=== PATIENT | male | born 1950 | race Caucasian/White ===

== ENCOUNTER 2017-09-04 11:32 | Inpatient (IN) | payer MEDICARE, SELFPAY ==
[~2017-09-04 11:32] MED LIST: Lidocaine 1% (PF) 30 ML VIAL ONE
[2017-09-04] MEDS ORDERED: Ondansetron HCl/PF 4 MG/2 ML Vial ONE (11:44)
[2017-09-04 12:06] LABS: Hemoglobin 16.9 g/dL (14.0-18.0); Mean Corpuscular HGB CONC 34.6 g/dL (32.0-36.0); Mean Corpuscular Hemoglobin 32.1 pg (27.0-31.0); Mean Corpuscular Volume 92.8 fl (80.0-94.0); Mean Platelet Volume 7.2 fL (7.4-10.4); Platelet Count 221 thou/uL (130-400); RBC Distribution Width 12.8 % (11.5-14.5); Red Blood Cell (RBC) Count 5.25 mill/uL (4.70-6.10); White Blood Cell (WBC) Count 16.3 thou/uL (4.8-10.8)
[2017-09-04] MEDS ORDERED: Heparin 10,000 UNITS/1 ML VIAL ONE (12:09)
[2017-09-04] MEDS ORDERED: Aggrastat 12.5 MG/250 ML 250 ML ONE (12:10)
[2017-09-04 12:11] LABS: INR-International Normal Ratio 1.2; Prothrombin Time 15.3 SEC (12.0-14.7)
[2017-09-04 12:12] LABS: PTT 87.4 SEC (22.9-36.1)
[2017-09-04 12:17] LABS: ALT (SGPT) 248 U/L (8-55); AST (SGOT) 204 U/L (5-34); Albumin 3.5 g/dL (3.4-4.8); Alkaline Phosphatase 84 U/L (40-150); Anion Gap 15 mmol/L (10-20); BUN (Urea Nitrogen) 15 mg/dL (8.4-25.7); Bilirubin, Total 0.8 mg/dL (0.2-1.2); CK (CPK) 155 U/L (30-200); Calc. Creatinine Clearance 0 mL/min (70-130); Calcium 8.2 mg/dL (7.8-10.44); Carbon Dioxide 17 mmol/L (23-31); Chloride 103 mmol/L (98-107); Estimated GFR-MDRD 49; Globulin 2.7 g/dL (2.4-3.5); Glucose 168 mg/dL (80-115); Lipase 170 U/L (8-78); Magnesium 1.8 mg/dL (1.6-2.6); Potassium 3.7 mmol/L (3.5-5.1); Protein, Total 6.2 g/dL (5.8-8.1); Sodium 131 mmol/L (136-145)
[2017-09-04 12:26] LABS: Band 4 % (5-11); Lymphocytes 14 % (21-51); MDiff Complete? YES; Monocytes 6 % (0-10); Neutrophil 76 % (42-75); PLT Morphology Comment Appears Adequate
[2017-09-04] MEDS ORDERED: Iopamidol 370 76% 100 ML VIAL ONE (12:31)
[2017-09-04] MEDS ORDERED: Iopamidol 370 76% 50 ML VIAL FS ONE (12:31)
[2017-09-04] MEDS ORDERED: Nitroglycerin 0.4 MG TAB (25 Tab Bottle) SL PRN (12:34)
[2017-09-04] MEDS ORDERED: Ondansetron HCl/PF 4 MG/2 ML Vial IVP PRN (12:36)
[2017-09-04] MEDS ORDERED: Senokot 8.6 MG TAB PO PRN (12:39)
[2017-09-04] MEDS ORDERED: Milk Of Magnesia 30 ML UDCUP PO PRN (12:39)
[2017-09-04] MEDS ORDERED: Loperamide HCl 2 MG CAP PO PRN (12:39)
[2017-09-04] MEDS ORDERED: Aggrastat 12.5 MG/250 ML 250 ML IVPB SCH (12:45)
[2017-09-04] MEDS ORDERED: Sodium Chloride 0.9% 1,000 ML IV SCH (12:45)
[2017-09-04 13:04] VITALS: BMI 30.3
[2017-09-04] MEDS ORDERED: Amiodarone HCl 450 MG, Admixture Fee 1 EACH in Dextrose 5% in Water 250 ML IVPB SCH (13:15)
[2017-09-04] MEDS ORDERED: Amiodarone HCl 150 MG, Admixture Fee 1 EACH in Dextrose 5% in Water 100 ML IVPB SCH (13:15)
[2017-09-04 13:54] LABS: Troponin I 21.905 ng/mL (< 0.028)
[2017-09-04 14:15] LABS: CKMB 226.6 ng/mL (0-6.6)
--- NOTE | 2017-09-04 15:28 | RAD ---
PORTABLE AP CHEST XRAY: DATE: 09/04/17. HISTORY: Acute myocardial infarction. COMPARISON: 05/10/10. FINDINGS: Postsurgical changes related to median sternotomy are again present. Thoracostomy tubes, mediastinal drain, and right subclavian central venous catheters are no longer visualized. Linear densities are seen in the right upper lung zone probably related to mild scarring. The lungs otherwise appear jamal ar. The most inferior aspect of each lateral costophrenic angle is excluded from view. There is mil d prominence of the central pulmonary arterial segments unchanged from prior exam. No other interval change. IMPRESSION: Mild chronic lung changes without evidence of an acute cardiopulmonary process. POS: [facility]
[2017-09-04] MEDS: Acetaminophen 325 MG TAB PO PRN (15:58)
[2017-09-04 19:17] LABS: Bilirubin Negative (Negative); Blood, Urine Moderate (Negative); Clarity CLEAR (Clear); Glucose, Urine (Dipstick) Negative (Negative); Leukocyte Negative (Negative); Nitrite Negative (Negative); Protein, Urine (Dipstick) Negative (Neg-Trace); Specific Gravity, Urine 1.043 (1.002-1.036); Urobilinogen 0.2 mg/dL (0.2-1.0); pH, Urine 5.5 (5.0-9.0)
[2017-09-04 19:18] LABS: Bacteria/HPF None Seen HPF (None Seen); Hyaline Casts/LPF 0-3 HYALINE CAST LPF (0-3 Hyaline); RBC/HPF 0-3 HPF (0-3); Squamous Epithelial None Seen HPF (0-3); WBC/HPF 0-3 HPF (0-3)
[2017-09-04 20:33] LABS: Troponin I 163.681 ng/mL (< 0.028)
[2017-09-04 20:34] LABS: CKMB 640.8 ng/mL (0-6.6)
[2017-09-04] MEDS: Atorvastatin Calcium 40 MG TAB PO SCH (20:57)
[2017-09-04] MEDS: Famotidine 20 MG TAB PO SCH (20:57)
[2017-09-04] MEDS: TICAGRELOR 90 MG TABLET PO SCH (20:58)
[2017-09-04] MEDS: Morphine 4 MG/ML VIAL SLOW IVP PRN (21:02)
--- NOTE | 2017-09-05 03:09 | HP ---
DATE OF ADMISSION: 09/04/2017 CHIEF COMPLAINT: Chest pain. HISTORY OF PRESENT ILLNESS: Mr. Amos is a pleasant 67-year-old white gentleman who comes to the [facility] for chest pain. He has been having chest pain for about an hour and a half before calling EMS. When EMS arrived, he had already lost consciousness. His was a nurse put him on the floor and was doing chest compressions on him. On the EMS arrival, he was found to be in ventricular fibrilla tion. He was given one shock and he woke up. Eventually, he went back into VFib twice on the way in to the hospital, so he was loaded on amiodarone and brought in by EMS. EKG on route was done and it showed inferolateral ST elevations, so the STEMI pager was activated. We are waiting for the patient in the ER, he was taken emergently to the catheterization lab, but he was found to have an occluded left circumflex proximally, this was successfully wired and stented with a drug-eluting stent. He di d much better. His symptoms got better after that. His ST changes also improved. He has a history of coronary artery disease with bypass in 2010. He had a CRUZ to the LAD, a vein to an OM, and a vei n to an RCA, all these grafts were occluded and not found. The CRUZ was atretic. There is residual significant RCA disease as well as significant LAD disease. Mr. Amos was transferred then to the [facility] for further monitoring. Currently, he is chest pain free. PAST MEDICAL HISTORY: 1. Coronary artery disease as above. 2. Hypertension. 3. Tobacco abuse. 4. Gout. 5. Hyperlipidemia. PAST SURGICAL HISTORY: Coronary artery bypass grafting x3 as above. OUTPATIENT MEDICATIONS: Include, 1. Pravastatin 20 mg at bedtime. 2. Losartan 100 mg a day. 3. Aspirin 325 a day. 4. Allopurinol 100 mg a day. FAMILY HISTORY: Noncontributory. SOCIAL HISTORY: He continues to smoke a pack a day. No alcohol or drugs. ALLERGIES: No known drug allergies. REVIEW OF SYSTEMS: A 12-point review of systems was done and is all negative unless stated in the hi story of present illness. PHYSICAL EXAMINATION: VITAL SIGNS: Temperature 97.5, pulse 81, respiratory rate 20, satting 100% on room air, and blood pr essure 95/69. GENERAL: Awake, alert, oriented x3, in no distress. HEENT: Normocephalic, atraumatic. NECK: Supple. LUNGS: Lungs are clear. CARDIOVASCULAR: S1, S2, no S3, S4. There is a grade 2/6 systolic murmur in the right upper sternal border. ABDOMEN: Soft, positive bowel sounds. EXTREMITIES: No edema. SKIN: Warm and dry. LABORATORY WORK: Reviewed. White count of 16, hemoglobin of 16, hematocrit of 48, platelet count of 221. Coags were reviewed. Chemistries were reviewed. Sodium of 131, creatinine of 1.45, GFR of 49 , glucose of 168, AST and ALT are little bit high. Troponin started at 0.09 up to 21.9 now 163. BNP was 31.2. UA was unremarkable except for moderate blood. Chest x-ray was reviewed. EKG is as above. ASSESSMENT: 1. Acute inferolateral ST elevation myocardial infarction. 2. Tobacco abuse. 3. Hypertension. 4. Ventricular fibrillation arrest. PLAN: 1. Dual antiplatelet therapy for minimum of one year with aspirin and Brilinta, aspirin 81. 2. Continue amiodarone drip until tomorrow given his ventricular fibrillation arrest. 3. He has a little bit of amnesia. He does not remember anything after the initiation of chest pain earlier this morning up until recently in the afternoon, when his was in the room with him. Mo st likely related to his ventricular fibrillation arrest; however, if there is any level of anoxic br ain injury is minimum as he is neurologically intact otherwise. 4. Tobacco cessation counseling. 5. Blood pressure is borderline low at this time. We will institute blood pressure medications both beta susy and ARB as blood pressure allows in the next few days. 6. We will monitor in the ICU overnight. May transfer to the floor tomorrow if he remained stable. 7. for 4 hours after PCI after that may discontinue. 8. FULL CODE. 9. PPI and Lovenox subcutaneous for deep venous thrombosis prophylaxis. DISPOSITION: Pending clinical evolution. Echocardiogram pending.
[2017-09-05 05:00] LABS: #Eosinphils 0.1 thou/uL (0.0-0.7); #Lymphocytes 2.8 thou/uL (1.20-3.40); #Neutrophils 8.5 thou/uL (1.40-6.50); %Basophils 0.2 % (0.0-1.0); %Lymphocytes 22.2 % (21.0-51.0); %Monocytes 8.2 % (0.0-10.0); %Neutrophils 68.4 % (42.0-75.0); Hemoglobin 15.8 g/dL (14.0-18.0); Mean Corpuscular HGB CONC 33.8 g/dL (32.0-36.0); Mean Corpuscular Hemoglobin 31.7 pg (27.0-31.0); Mean Corpuscular Volume 93.5 fl (80.0-94.0); Mean Platelet Volume 7.2 fL (7.4-10.4); Platelet Count 201 thou/uL (130-400); RBC Distribution Width 12.8 % (11.5-14.5); White Blood Cell (WBC) Count 12.4 thou/uL (4.8-10.8)
[2017-09-05 05:14] LABS: ALT (SGPT) 174 U/L (8-55); AST (SGOT) 258 U/L (5-34); Alkaline Phosphatase 71 U/L (40-150); Anion Gap 12 mmol/L (10-20); BUN (Urea Nitrogen) 12 mg/dL (8.4-25.7); Calc. Creatinine Clearance 89 mL/min (70-130); Carbon Dioxide 17 mmol/L (23-31); Cardiac Risk 4.4 (Less than 4.5); Chloride 109 mmol/L (98-107); Cholesterol 109 mg/dl (< 200 Desired); Estimated GFR-MDRD 60; Globulin 2.3 g/dL (2.4-3.5); Glucose 96 mg/dL (80-115); HDL Cholesterol 25 mg/dL (>60 Neg Risk); LDL Cholesterol, Calculated 59 mg/dL; Potassium 4.4 mmol/L (3.5-5.1); Protein, Total 5.3 g/dL (5.8-8.1); Sodium 134 mmol/L (136-145); Triglycerides 125 mg/dL (Less than 150)
[2017-09-05 05:42] LABS: CKMB 276.8 ng/mL (0-6.6); Critical Call Chem Troponin I RESULT DECREASING; Troponin I 128.006 ng/mL (< 0.028)
--- NOTE | 2017-09-05 08:28 | PDOC.CTH ---
Cardiology Progress Note - Subjective He is doing well. no chest pain, tightness, pressure. He had an episode of bradycardia overnight so amiodarone was stopped, he has not had any VT. - Objective Vital Signs Temp Pulse Resp Pulse Ox 09/05/17 07:57 98.2 F 77 18 97 09/05/17 07:00 98.2 F 09/05/17 02:08 19 100 09/05/17 00:19 76 22 H 100 09/05/17 00:00 98.0 F 09/04/17 22:14 81 12 100 Weight 230 lb 2.601 oz 09/04/17 09/05/17 09/06/17 06:59 06:59 06:59 Intake Total 3635 Output Total 1550 0 Balance 2085 0 - Physical Examination General/Neuro: alert & oriented x3, NAD Neck: no JVD present Lungs: CTA, unlabored respirations Heart: RRR Abdomen: NT/ND Extremities: + edema B (trace) - Telemetry Telemetry Rhythm: NSR - Labs Result Diagrams: 09/05/17 04:26 09/05/17 04:26 Troponin/CKMB CK-MB (CK-2) 276.8 ng/mL (0-6.6) H* 09/05/17 04:26 Troponin I 128.006 ng/mL (< 0.028) H* 09/05/17 04:26 - Assessment/Plan 1. Acute inferolateral STEMI 2. Ischemic CM 3. HTN 4. Tobacco use 5. Residual RCA and LAD disease. PLAN: - Continue aspirin, brilinta and statin. - Will stop amiodarone completely - BP still too borderline low for BB/ACEI. - Will transfer to telemetry floor.
[2017-09-05] MEDS: Acetaminophen 325 MG TAB PO PRN (09:18)
[2017-09-05] MEDS: Enoxaparin Sodium 40 MG/0.4 ML SYRINGE SC SCH (09:18)
[2017-09-05] MEDS: Famotidine 20 MG TAB PO SCH ×2 (09:19→20:21)
[2017-09-05] MEDS: TICAGRELOR 90 MG TABLET PO SCH ×2 (09:29→20:23)
[2017-09-05] MEDS: Atorvastatin Calcium 40 MG TAB PO SCH (20:20)
[2017-09-05] MEDS ORDERED: Sodium Chloride 0.9% 10 ML ONE (21:09)
[2017-09-05] MEDS: Morphine 4 MG/ML VIAL SLOW IVP PRN (21:13)
[2017-09-06 04:51] LABS: #Basophils 0.1 thou/uL (0.0-0.2); #Eosinphils 0.2 thou/uL (0.0-0.7); #Monocytes 1.1 thou/uL (0.11-0.59); #Neutrophils 7.4 thou/uL (1.40-6.50); %Basophils 0.6 % (0.0-1.0); %Lymphocytes 25.5 % (21.0-51.0); %Monocytes 9.3 % (0.0-10.0); %Neutrophils 62.7 % (42.0-75.0); Hemoglobin 15.8 g/dL (14.0-18.0); Mean Corpuscular HGB CONC 34.5 g/dL (32.0-36.0); Mean Corpuscular Hemoglobin 32.3 pg (27.0-31.0); Mean Corpuscular Volume 93.5 fl (80.0-94.0); Mean Platelet Volume 7.1 fL (7.4-10.4); Platelet Count 186 thou/uL (130-400); RBC Distribution Width 12.8 % (11.5-14.5); Red Blood Cell (RBC) Count 4.91 mill/uL (4.70-6.10); White Blood Cell (WBC) Count 11.8 thou/uL (4.8-10.8)
[2017-09-06 05:19] LABS: Anion Gap 12 mmol/L (10-20); BUN (Urea Nitrogen) 12 mg/dL (8.4-25.7); Calc. Creatinine Clearance 79 mL/min (70-130); Calcium 8.3 mg/dL (7.8-10.44); Carbon Dioxide 20 mmol/L (23-31); Chloride 108 mmol/L (98-107); Estimated GFR-MDRD 54; Glucose 93 mg/dL (80-115); Potassium 4.2 mmol/L (3.5-5.1); Sodium 136 mmol/L (136-145)
[2017-09-06] MEDS: Famotidine 20 MG TAB PO SCH ×2 (08:22→21:21)
[2017-09-06] MEDS: TICAGRELOR 90 MG TABLET PO SCH ×2 (08:23→21:21)
[2017-09-06] MEDS: Enoxaparin Sodium 40 MG/0.4 ML SYRINGE SC SCH (08:23)
--- NOTE | 2017-09-06 18:36 | PDOC.CTH ---
Cardiology Progress Note - Subjective He is doing well. No new issues. No chest pain, SOB. - Objective Vital Signs Temp Pulse Pulse Pulse Resp BP BP 09/06/17 16:00 98.7 F 83 16 09/06/17 13:40 84 76 137/81 115/70 09/06/17 12:10 99.1 F 82 16 09/06/17 08:20 99.0 F 86 18 09/06/17 08:00 99.0 F 86 18 BP Pulse Ox Pulse Ox Pulse Ox 09/06/17 16:00 119/78 98 09/06/17 13:40 98 97 09/06/17 12:10 116/76 96 09/06/17 08:20 110/65 96 09/06/17 08:00 96 Weight 224 lb 8 oz 09/05/17 09/06/17 09/07/17 06:59 06:59 06:59 Intake Total 3635 600 1520 Output Total 1550 1200 1250 Balance 2085 -600 270 - Physical Examination General/Neuro: alert & oriented x3, NAD Neck: no JVD present Lungs: CTA, unlabored respirations Heart: RRR Abdomen: NT/ND Extremities: other: (no edema) - Telemetry Telemetry Rhythm: NSR - Labs Result Diagrams: 09/06/17 04:16 09/06/17 04:16 Troponin/CKMB CK-MB (CK-2) 276.8 ng/mL (0-6.6) H* 09/05/17 04:26 Troponin I 128.006 ng/mL (< 0.028) H* 09/05/17 04:26 - Assessment/Plan 1. Acute inferolateral STEMI 2. Ischemic CM 3. HTN 4. Tobacco use 5. Residual RCA and LAD disease. 6. Ischemic CM EF at 40-45% PLAN: - Continue aspirin, Brilinta and statin. - Will start low dose Bb today. - likely home tomorrow. - Will need PCI to RCA and LAD in one month. My office will set up.
[2017-09-06] MEDS: Atorvastatin Calcium 40 MG TAB PO SCH (21:21)
[2017-09-07 05:01] LABS: #Basophils 0.1 thou/uL (0.0-0.2); #Eosinphils 0.3 thou/uL (0.0-0.7); #Lymphocytes 2.9 thou/uL (1.20-3.40); #Monocytes 1.1 thou/uL (0.11-0.59); #Neutrophils 6.6 thou/uL (1.40-6.50); %Basophils 0.8 % (0.0-1.0); %Eosinophils 2.4 % (0.0-10.0); %Lymphocytes 26.6 % (21.0-51.0); %Monocytes 10.3 % (0.0-10.0); Mean Corpuscular HGB CONC 34.6 g/dL (32.0-36.0); Mean Corpuscular Hemoglobin 31.9 pg (27.0-31.0); Mean Corpuscular Volume 92.1 fl (80.0-94.0); Mean Platelet Volume 7.2 fL (7.4-10.4); Platelet Count 184 thou/uL (130-400); RBC Distribution Width 12.7 % (11.5-14.5); Red Blood Cell (RBC) Count 5.02 mill/uL (4.70-6.10)
[2017-09-07 05:21] LABS: Anion Gap 13 mmol/L (10-20); Calcium 8.4 mg/dL (7.8-10.44); Carbon Dioxide 16 mmol/L (23-31); Chloride 108 mmol/L (98-107); Potassium 4.6 mmol/L (3.5-5.1); Sodium 132 mmol/L (136-145)
[2017-09-07 05:29] LABS: BUN (Urea Nitrogen) 14 mg/dL (8.4-25.7); Calc. Creatinine Clearance 77 mL/min (70-130); Estimated GFR-MDRD 52; Glucose 85 mg/dL (80-115)
[2017-09-07 07:40] VITALS: TEMP 97.9
[2017-09-07] MEDS ORDERED: Lisinopril 2.5 MG TAB PO SCH (09:00)
--- NOTE | 2017-09-07 09:05 | DIS ---
DATE OF ADMISSION: 09/04/2017 DATE OF DISCHARGE: 09/07/2017 DISCHARGING PHYSICIAN: Sharan Gayle M.D. PRIMARY DIAGNOSIS: Inferolateral ST elevation myocardial infarction. PROCEDURES PERFORMED: 1. Left heart catheterization. 2. Percutaneous coronary intervention to the large left circumflex. 3. Echocardiogram. 4. Chest x-ray. SUMMARY: Mr. Amos is a pleasant 67-year-old white gentleman who came to the hospital with chest moriah n. He was diagnosed with an inferolateral ST elevation [place]. Actually, he had episodes of V-fib arres t at home that he was shocked 3 times. He was brought in taking immediately to the catheterization l ab where he was found to have an occluded left circumflex. This was stented successfully with a drug -eluting stent. He did well postoperatively and is ready for discharge. His blood pressure is borde rline low, so his blood pressure regimen had to be switched. DISCHARGE MEDICATIONS: 1. Aspirin 81 mg a day. 2. Brilinta 90 mg p.o. b.i.d. 3. Sublingual nitro p.r.n. 4. Atorvastatin 80 mg at bedtime. 5. Lisinopril 2.5 mg half tablet a day. 6. Toprol-XL 25 mg half tablet a day. 7. Allopurinol 100 mg a day. Follow up in the office in one month. He has residual RCA disease and LAD disease and will need to b e stented in the future. Over 30 minutes were spent at bedside counseling for discharge.
[2017-09-07] MEDS: TICAGRELOR 90 MG TABLET PO SCH (09:25)
[2017-09-07] MEDS: Famotidine 20 MG TAB PO SCH (09:25)
[2017-09-07] MEDS: Enoxaparin Sodium 40 MG/0.4 ML SYRINGE SC SCH (09:25)
[2017-09-07 09:28] VITALS: BP 131/60
--- NOTE | 2017-09-10 17:31 | EKG ---
Test Reason : POST STENTS Blood Pressure : / mmHG Vent. Rate : 077 BPM Atrial Rate : 077 BPM P-R Int : 188 ms QRS Dur : 082 ms QT Int : 430 ms P-R-T Axes : 066 056 053 degrees QTc Int : 486 ms Sinus rhythm with frequent , and consecutive Premature ventricular complexes Low voltage QRS Possible Inferior infarct , age undetermined Abnormal ECG When compared with ECG of 09-MAY-2010 12:03, Premature ventricular complexes are now Present Premature supraventricular complexes are no longer Present Confirmed by DR. Sterling LEON ([id number]) on 09/10/2017 5:31:23 PM Referred By: MIKHAIL Confirmed By:DR. Sterling LEON
--- NOTE | 2017-09-10 17:35 | EKG ---
Test Reason : Blood Pressure : / mmHG Vent. Rate : 078 BPM Atrial Rate : 078 BPM P-R Int : 170 ms QRS Dur : 074 ms QT Int : 442 ms P-R-T Axes : 069 017 060 degrees QTc Int : 503 ms Normal sinus rhythm Low voltage QRS Possible Inferior infarct (cited on or before 04-SEP-2017) Prolonged QT Abnormal ECG When compared with ECG of 04-SEP-2017 13:16, (Unconfirmed) Premature ventricular complexes are no longer Present Confirmed by DR. Sterling LEON ([id number]) on 09/10/2017 5:34:46 PM Referred By: MIKHAIL Confirmed By:DR. Sterling LEON
== END 2017-09-07 11:43 | disposition home or self-care (01) | DRG 246 ==
LOC: CCL 11:32 → CCU 12:51 → 2NO 09-05 12:46
PROVIDERS: ADMIT Internal Medicine Cardiovascular Disease; ATTEND Internal Medicine Cardiovascular Disease
PROC: 027034Z Dilation of Coronary Artery, One Artery with Drug-eluting Intraluminal Device, Percutaneous Approach (ICD-10-PCS; principal; 2017-09-04)
PROC: 4A023N7 Measurement of Cardiac Sampling and Pressure, Left Heart, Percutaneous Approach (ICD-10-PCS; 2017-09-04)
PROC: B2111ZZ Fluoroscopy of Multiple Coronary Arteries using Low Osmolar Contrast (ICD-10-PCS; 2017-09-04)
PROC: B2151ZZ Fluoroscopy of Left Heart using Low Osmolar Contrast (ICD-10-PCS; 2017-09-04)
DX: I21.3 ST elevation (STEMI) myocardial infarction of unspecified site (principal); I49.01 Ventricular fibrillation; Z95.1 Presence of aortocoronary bypass graft; I10 Essential (primary) hypertension; F17.210 Nicotine dependence, cigarettes, uncomplicated; E78.5 Hyperlipidemia, unspecified; Z79.899 Other long term (current) drug therapy; Z79.82 Long term (current) use of aspirin; Z71.6 Tobacco abuse counseling
CPT/HCPCS: 36415; 71045; 80048; 80053; 80061; 81001; 82550; 82553; 83690; 83735; 83880; 84443; 84484; 85007; 85025; 85027; 85610; 85730; 92941; 93005; 93010; 93306; 93459; 93798; 94660; A4216; C1760; C1769; C1874; C1887; C9606; J0282; J1644; J1650; J2001; J2270; J2405; J3246; J7070

== ENCOUNTER 2017-10-26 07:19 | Day surgery (SDC) | payer MEDICARE ==
[2017-10-25 10:22] VITALS: BMI 30.3
[2017-10-26 08:20] LABS: Hemoglobin 17.7 g/dL (14.0-18.0); Mean Corpuscular HGB CONC 33.6 g/dL (32.0-36.0); Mean Corpuscular Hemoglobin 31.5 pg (27.0-31.0); Mean Corpuscular Volume 93.7 fL (78.0-98.0); Mean Platelet Volume 7.2 fL (7.4-10.4); Platelet Count 206 thou/uL (130-400); RBC Distribution Width 13.2 % (11.5-14.5); Red Blood Cell (RBC) Count 5.61 mill/uL (4.70-6.10); White Blood Cell (WBC) Count 7.9 thou/uL (4.8-10.8)
[2017-10-26] MEDS ORDERED: Heparin 10,000 UNITS/1 ML VIAL ONE (08:46)
[2017-10-26] MEDS ORDERED: Lidocaine 1% (PF) 30 ML VIAL ONE (08:46)
[2017-10-26 08:53] LABS: Anion Gap 13 mmol/L (10-20); BUN (Urea Nitrogen) 14 mg/dL (8.4-25.7); Calc. Creatinine Clearance 82 mL/min (70-130); Calcium 9.5 mg/dL (7.8-10.44); Carbon Dioxide 21 mmol/L (23-31); Chloride 109 mmol/L (98-107); Estimated GFR-MDRD 55; Glucose 104 mg/dL (80-115); Potassium 4.4 mmol/L (3.5-5.1); Sodium 139 mmol/L (136-145)
[2017-10-26] MEDS ORDERED: Iopamidol 370 76% 100 ML VIAL ONE (09:35)
[2017-10-26] MEDS ORDERED: Iopamidol 370 76% 50 ML VIAL FS ONE (09:35)
[2017-10-26] MEDS ORDERED: Midazolam HCl 2 mg/2 ml Vial ONE (09:50)
[2017-10-26] MEDS ORDERED: Fentanyl 100 MCG/2 ML VIAL ONE (09:52)
== END 2017-10-26 14:02 | disposition home or self-care (01) ==
LOC: CCL 07:19
PROVIDERS: ATTEND Internal Medicine Cardiovascular Disease
DX: I25.10 Atherosclerotic heart disease of native coronary artery without angina pectoris (principal); I25.2 Old myocardial infarction; F17.290 Nicotine dependence, other tobacco product, uncomplicated; Z88.8 Allergy status to other drugs, medicaments and biological substances; Z79.82 Long term (current) use of aspirin; Z79.899 Other long term (current) drug therapy
CPT/HCPCS: 80048; 85027; 85347 ×2; 93005; 93454; C1769 ×2; C1874; C1887; C9600; C9601; 92928; 92929; 99152; 99153; J1644; J2001; J2250; J3010

== ENCOUNTER 2018-12-08 15:55 | Observation (INO) | payer MEDICARE ==
[2018-12-08 17:12] LABS: CKMB 1.8 ng/mL (0-6.6)
[2018-12-08] MEDS ORDERED: Nitroglycerin 0.4 MG TAB (25 Tab Bottle) SL PRN (18:10)
[2018-12-08 18:52] VITALS: BMI 29.5
[2018-12-08 20:17] LABS: Troponin I 0.036 ng/mL (< 0.028)
[2018-12-08] MEDS: TICAGRELOR 90 MG TABLET PO SCH (20:44)
[2018-12-08] MEDS ORDERED: Allopurinol 100 MG TAB PO SCH (21:00)
[2018-12-08] MEDS ORDERED: Pravastatin Sodium 40 MG TAB PO SCH (21:00)
[2018-12-08 23:21] LABS: Troponin I 0.027 ng/mL (< 0.028)
[2018-12-08] MEDS ORDERED: Ondansetron PF 4 MG/2 ML Vial IVP PRN (23:47)
[2018-12-08] MEDS ORDERED: Ondansetron ODT 4 MG TAB PO PRN (23:47)
[2018-12-08] MEDS ORDERED: Acetaminophen 325 MG TAB PO PRN (23:47)
--- NOTE | 2018-12-09 04:05 | HP ---
PRIMARY CARE PHYSICIAN: Dr. Zachary Portillo. CHIEF COMPLAINT: Chest pain. HISTORY OF PRESENT ILLNESS: Mr. Amos is a pleasant 68-year-old man with past medical history of hypertension, hyperlipidemia, chronic systolic and diastolic heart failure, and coronary artery disease, who had presented to [facility] [place] in [place] for unstable angina that he had developed earlier this morning. He states that he took 3 of his home nitroglycerins and his chest pain had slightly improved. At the [facility], he was provided with 0.5 inch of nitroglycerin paste, which also improved the patient's symptoms. He states that his primary abrading machine tender is Dr. Gayle, looking back at his records, an echocardiogram from 09/04/2017 displayed an ejection fraction of 40% to 45% with grade 1 diastolic dysfunction. It was also noted that the patient had a heart catheterization that day as well for an occluded left circumflex and severe LAD and RCA disease, for which a stent was placed in the left circumflex. He was also noted to have another heart catheterization on 10/26/2017, which showed severe LAD and RCA disease, which both required stenting. It also displayed a patent stent to the left circumflex. The patient states that he has felt good ever since up until this morning. Upon arriving to the [facility] facility, his initial labs were essentially normal. His BNP was found to be 21 and troponin was normal at 0.05 according to their lab. He was transferred over to [facility], where he had denied any fever, chills, headache, blurred vision, dizziness, chest pain, palpitations, shortness of breath, abdominal pain, nausea, or vomiting. Labs indicated that his troponin had trended down to 0.027 and he had remained chest pain free. CK-MB was also ordered and found to be normal at 1.8. The patient was found to be slightly bradycardic in the 50s; however, he had remained asymptomatic. For this reason, his home dose of carvedilol was held. A consult was placed for Cardiology Services, Dr. Gayle, which is currently pending at this time. REVIEW OF SYSTEMS: All other systems reviewed and found to be negative unless mentioned in the HPI. 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 PAST SURGICAL HISTORY: Right kidney removed, multiple bone grafts surgery. PSYCHIATRIC HISTORY: None. SOCIAL HISTORY: The patient reports drinking socially about twice a month. Denies any illicit drug use. He is a current tobacco smoker and smokes about 1 to 2 cigarettes per day. KNOWN ALLERGIES: No known drug allergies. CURRENT HOME MEDICATIONS: 1. Lisinopril 5 mg oral daily. 2. Metoprolol 12.5 mg p.o. at bedtime. 3. Allopurinol 100 mg p.o. at bedtime. 4. Aspirin 81 mg daily. 5. Nitroglycerin 0.4 mg sublingual every 5 minutes as needed for chest pain. 6. Pravastatin 40 mg p.o. at bedtime. 7. Brilinta 90 mg p.o. b.i.d. 8. Prevacid 15 mg p.o. daily. PHYSICAL EXAMINATION: VITAL SIGNS: BP 136/74, pulse 51, respirations 18, temperature 98.2 degrees, O2 saturation 99% on room air. GENERAL: The patient is awake, alert, and oriented x3, currently lying comfortably in bed, in no acute distress. HEENT: Atraumatic, normocephalic. Pupils are round and reactive to light. Extraocular muscles intact. Moist mucous membranes noted. CARDIOVASCULAR: Positive S1 and S2. Regular rate and rhythm. He had a 2/6 systolic murmur. RESPIRATORY: Clear to auscultation bilaterally. No wheezes, rales, or rhonchi. ABDOMEN: Soft, nontender. Bowel sounds present. MUSCULOSKELETAL: Strength 5+ bilaterally upper and lower extremities. Moves all extremities equal. No edema noted. NEUROLOGIC: Cranial nerves 2 through 12 grossly intact. No focal deficits noted. Speech intact and normal. Gait not assessed. SKIN: Warm, dry and intact. No rashes. No ulceration noted. PSYCHIATRIC: Good mood and affect. LABORATORY DATA: WBC 8.6, RBC 5.55, hemoglobin 17.8, platelet 198. Sodium 137, potassium 4.3, glucose 106, BUN 15, creatinine 1.41, estimated GFR 51. BNP 21. Troponin 0.05, which trended down to 0.027. CK-MB 1.8. DIAGNOSTIC IMAGING: One view chest x-ray was performed; however, results were unavailable. ASSESSMENT AND PLAN: 1. Chest pain due to patient's history. Cardiology Services, Dr. Gayle, will be consulted for further evaluation. Serial troponins are trending down and patient is currently asymptomatic. Due to patient's bradycardia on the monitor upon arriving, his home dose of metoprolol was held. 2. Hypertension. Continue home regimen and monitor vital signs and blood pressure closely. 3. Hyperlipidemia. Continue home statin. 4. History of coronary artery disease. Continue dual anti-platelet therapy including aspirin and Brilinta and await further recommendations from Cardiology. 5. History of systolic and grade 1 diastolic dysfunction. His last echocardiogram was 09/04/2017, which showed an EF of 40% to 45% with grade 1 diastolic dysfunction. We will obtain an echocardiogram during this visit. 6. Deep venous thrombosis and gastrointestinal prophylaxis. 7. Code status, full code. DISPOSITION: Pending further workup and clinical findings. Job ID: [id number]
[2018-12-09 05:20] LABS: #Basophils 0.1 thou/uL (0.0-0.2); #Eosinphils 0.3 thou/uL (0.0-0.7); #Lymphocytes 2.7 thou/uL (1.20-3.40); #Monocytes 0.8 thou/uL (0.11-0.59); #Neutrophils 4.5 thou/uL (1.40-6.50); %Basophils 0.7 % (0.0-1.0); %Eosinophils 3.5 % (0.0-10.0); %Lymphocytes 32.5 % (21.0-51.0); %Monocytes 9.2 % (0.0-10.0); %Neutrophils 54.2 % (42.0-75.0); Hemoglobin 16.4 g/dL (14.0-18.0); Mean Corpuscular HGB CONC 33.8 g/dL (32.0-36.0); Mean Corpuscular Volume 94.7 fL (78.0-98.0); Mean Platelet Volume 7.5 fL (7.4-10.4); Platelet Count 177 thou/uL (130-400); RBC Distribution Width 12.5 % (11.5-14.5); Red Blood Cell (RBC) Count 5.12 mill/uL (4.70-6.10); White Blood Cell (WBC) Count 8.3 thou/uL (4.8-10.8)
[2018-12-09 05:36] LABS: Anion Gap 9 mmol/L (10-20); BUN (Urea Nitrogen) 14 mg/dL (8.4-25.7); Calc. Creatinine Clearance 86 mL/min (70-130); Calcium 8.9 mg/dL (7.8-10.44); Carbon Dioxide 24 mmol/L (23-31); Chloride 105 mmol/L (98-107); Estimated GFR-MDRD 61; Glucose 95 mg/dL (80-115); Potassium 4.3 mmol/L (3.5-5.1); Sodium 134 mmol/L (136-145)
[2018-12-09] MEDS ORDERED: Lisinopril 5 MG TAB PO SCH (09:00)
[2018-12-09] MEDS ORDERED: Lisinopril 2.5 MG TAB PO SCH (09:00)
[2018-12-09] MEDS ORDERED: Enoxaparin Sodium 40 MG/0.4 ML SYRINGE SC SCH (09:00)
[2018-12-09] MEDS ORDERED: Aspirin Chewable 81 MG TAB PO SCH (09:00)
[2018-12-09] MEDS ORDERED: Famotidine 20 MG TAB PO SCH (09:00)
[2018-12-09] MEDS: TICAGRELOR 90 MG TABLET PO SCH (09:59)
[2018-12-09 12:14] VITALS: BP 122/66; TEMP 97.7
--- NOTE | 2018-12-09 13:05 | PDOC.HOSPP ---
- Subjective Encounter Date: 12/09/18 Encounter Time: 11:00 Subjective: Patient examined, denies new complaints. Denies CP, dyspnea - Objective Vital Signs & Weight: Vital Signs (12 hours) Temp Pulse Resp BP Pulse Ox 12/09/18 11:45 97.7 F 61 16 122/66 98 12/09/18 07:32 97.5 F L 60 16 128/71 97 12/09/18 04:04 97.3 F L 57 L 18 114/67 98 Weight Weight 101.469 kg I&O: 12/08/18 12/09/18 12/10/18 06:59 06:59 06:59 Intake Total 290 Output Total 550 500 Balance -260 -500 Result Diagrams: 12/09/18 05:05 12/09/18 05:05 ROS - Review of Systems Cardiovascular: reports: chest pain (resoved currently) - Medication Medications: Active Medications Generic Name Dose Route Start Last Admin Trade Name Freq PRN Reason Stop Dose Admin Allopurinol 100 mg 12/08/18 21:00 12/08/18 20:44 Zyloprim PO 100 mg HS ALFRED Administration Aspirin 81 mg 12/09/18 09:00 12/09/18 09:56 Aspirin Chewable PO 81 mg DAILY ALFRED Administration Enoxaparin Sodium 40 mg 12/09/18 09:00 12/09/18 09:56 Lovenox SC Not Given 0900 ALFRED Famotidine 20 mg 12/09/18 09:00 12/09/18 09:56 Pepcid PO 20 mg BID ALFRED Administration Lisinopril 5 mg 12/09/18 09:00 12/09/18 09:56 Zestril PO 5 mg DAILY ALFRED Administration Pravastatin Sodium 40 mg 12/08/18 21:00 12/08/18 20:44 Pravachol PO 40 mg HS ALFRED Administration Ticagrelor 90 mg 12/08/18 21:00 12/09/18 09:59 Brilinta PO 90 mg BID ALFRED Administration - Exam Eye: PERRL ENT: moist mucosa, dry oral mucosa Neck: supple Heart: RRR, II/IV Respiratory: CTAB Gastrointestinal: soft, non-tender Neurological: CN's grossly intact Musculoskeletal: normal strength Psychiatric: normal affect Hosp A/P (1) Chest pain Code(s): R07.9 - CHEST PAIN, UNSPECIFIED Status: Acute (2) Heart failure Code(s): I50.9 - HEART FAILURE, UNSPECIFIED Status: Chronic (3) Hypertension Code(s): I10 - ESSENTIAL (PRIMARY) HYPERTENSION Status: Acute (4) Hyperlipemia Code(s): E78.5 - HYPERLIPIDEMIA, UNSPECIFIED Status: Chronic (5) CAD (coronary artery disease) Code(s): I25.10 - ATHSCL HEART DISEASE OF [place] CORONARY ARTERY W/O ANG PCTRS Status: Chronic - Plan old records reviewed/req Echocardiogram has been taken, awaiting consultation from Dr. Gayle for next steps. Will continue to monitor Recheck labs in AM
--- NOTE | 2018-12-09 17:17 | CON ---
DATE OF CONSULTATION: 12/09/2018 REASON FOR CONSULTATION: Chest pain. HISTORY OF PRESENT ILLNESS: Mr. Amos is a pleasant 68-year-old white gentleman, who comes to the hospital for chest pain. He started having chest pain yesterday morning, took a sublingual nitroglycerin and the pain got better. About 30 minutes later, he started having pain again and had to take 3 nitroglycerins, so decided to call 911. He was brought in for evaluation. He was ruled out with negative troponins. He is chest pain free now. Mr. Amos has a significant history of coronary artery disease. He had an inferior IL back in August of last year, at which point he had an occluded left circ that was opened successfully. He had residual LAD and RCA disease, for which he was brought in about a month later and drug-eluting stents were placed successfully as well. He has been on Brilinta and aspirin since then. He takes his medication religiously and has not had any problems. He has not had any chest pain. PAST MEDICAL HISTORY: 1. Coronary artery disease as above. 2. Hypertension. 3. Hyperlipidemia. 4. Transitional cell cancer of the kidney. 5. Ischemic cardiomyopathy. EF was down to 40% to 45%, but improved on echo today. PAST SURGICAL HISTORY: 1. Right kidney removal. 2. Multiple bone graft surgeries. SOCIAL HISTORY: Social alcohol use twice a month. No drug use. Smokes 1 to 2 cigarettes a day. ALLERGIES: NO KNOWN DRUG ALLERGIES. OUTPATIENT MEDICATIONS: 1. Lisinopril 5 mg a day. 2. Metoprolol 12.5 mg daily at bedtime. 3. Allopurinol 100 mg a day. 4. Aspirin 81 a day. 5. Nitroglycerin sublingual p.r.n. 6. Pravastatin 40 mg at bedtime. 7. Brilinta 90 mg b.i.d. 8. Prevacid 50 mg a day. ALLERGIES: NO KNOWN DRUG ALLERGIES. REVIEW OF SYSTEMS: A 12-point review of systems was done and was all negative unless stated in the history of present illness. PHYSICAL EXAMINATION: VITAL SIGNS: Temperature 97.7, pulse 61, respiratory rate 16, saturating 98% on room air, and blood pressure 122/66. GENERAL: Awake, alert, oriented x3, in no distress. HEENT: Normocephalic and atraumatic. NECK: Supple. LUNGS: Clear. CARDIOVASCULAR: S1 and S2. No S3 or S4. No murmurs. No rubs. ABDOMEN: Soft. Positive bowel sounds. EXTREMITIES: No edema. SKIN: Warm and dry. LABORATORY DATA: Laboratory work was reviewed. CBC unremarkable. BMP unremarkable. Troponin was 0.04, 0.03. 0.02. CK-MB is 1.8. Echocardiogram was reviewed. EF at about 60% to 65% with mild MR, mild AI, and mild TR. ASSESSMENT: 1. Chest pain. 2. Coronary artery disease. 3. Ongoing tobacco use. PLAN: 1. Symptoms could be concerning for angina. We will plan on adding isosorbide mononitrate to his regimen. We will stop lisinopril and add Imdur to make space in his blood pressure as he does get lightheaded every now and then. We will plan on seeing him back in the office as scheduled. He has a visit in 10 days coming up. We will try to get a stress test before that. This will be arranged as an outpatient. 2. At that point, if his chest pain recurs or if he has an abnormal stress test, we will plan on further risk stratification with heart catheterization. Otherwise, hopefully, medical therapy will suffice for now. 3. Counseled on tobacco cessation. Thank you for letting us participate in the care of your patient. We will sign off. Please call with any questions. Job ID: [id number]
--- NOTE | 2018-12-10 03:59 | DIS ---
DATE OF ADMISSION: 12/08/2018 DATE OF DISCHARGE: 12/09/2018 PRIMARY CARE PHYSICIAN: Dr. Portillo. CONSULTATIONS: Dr. Gayle. PROCEDURES: The patient had an echocardiogram which showed an EF of 60% to 65%, mildly dilated left atrium, mild mitral regurgitation, mild aortic regurgitation, mild tricuspid regurgitation. SHORT STAY SUMMARY: Mr. Amos is a 68-year-old man who reported to the emergency room at [facility] for evaluation of chest pain with some past medical history pertinent for hypertension, hyperlipidemia, chronic systolic and diastolic heart failure, coronary artery disease. The patient's rn l and d is Dr. Gayle. The patient reports that he has an appointment with him on the of this month and was supposed to have an echocardiogram done on 12/10/2018. The last echocardiogram done on August of 2017 displayed an EF of 40% to 45% with grade 1 diastolic dysfunction, it was also noted that he had a heart catheterization for an occluded left circumflex and severe LAD and RCA disease for which a stent was placed in the left circumflex. He is also noted to have an another heart catheterization in October 26, 2017, which showed severe LAD and RCA disease and both were stented. He was sent over from [facility] in [place] to this facility for admission to the observation unit. He had 3 troponins in this facility, 1st one at 0.048, 2nd one at 0.036, and last one in the undetectable range at 0.027. The patient had a repeat echocardiogram which was read by Dr. Gayle. He evaluated patient, looked at his echocardiogram and decided symptoms were concerning for angina and he added Imdur to his daily regimen. The patient on my exam this morning denied any further chest pain. Vital signs have remained stable. Laboratory values also remained stable. The patient was subsequently discharged home. KNOWN ALLERGIES: None. HOME MEDICATIONS: We will restart the, 1. Zyloprim 100 mg p.o. at bedtime. 2. Prevacid 15 mg p.o. daily. 3. Toprol 12.5 mg p.o. at bedtime. 4. Pravastatin 40 mg p.o. at bedtime. 5. Aspirin 81 mg p.o. daily. 6. Nitrostat 0.4 mg q.5 minutes. 7. Brilinta 90 mg p.o. b.i.d. 8. We are adding isosorbide 30 mg p.o. daily and discontinuing the lisinopril. DISPOSITION: Home. DISPOSITION CONDITION: Stable. FOLLOWUP INSTRUCTIONS: Follow up with Dr. Portillo within the next week. Should follow up with Dr. Gayle in the next 2 to 3 weeks. Should get the Imdur filled and stop taking the lisinopril. Job ID: [id number]
--- NOTE | 2018-12-14 12:30 | EKG ---
Test Reason : Blood Pressure : / mmHG Vent. Rate : 060 BPM Atrial Rate : 060 BPM P-R Int : 184 ms QRS Dur : 088 ms QT Int : 464 ms P-R-T Axes : 064 034 058 degrees QTc Int : 464 ms Normal sinus rhythm Cannot rule out Anterior infarct , age undetermined Abnormal ECG Confirmed by SKY PASCUAL ([id number]), senior technical editor TIA NUÑEZ ([id number] on 12/14/2018 12:30:22 PM Referred By: Confirmed By:SKY PASCUAL
== END 2018-12-09 16:35 | disposition home or self-care (01) ==
LOC: ERS 15:55 → 2SW 18:26
PROVIDERS: ADMIT Family Medicine; ATTEND Family Medicine
DX: R07.89 Other chest pain (principal); I11.0 Hypertensive heart disease with heart failure; I50.42 Chronic combined systolic (congestive) and diastolic (congestive) heart failure; I08.3 Combined rheumatic disorders of mitral, aortic and tricuspid valves; E78.5 Hyperlipidemia, unspecified; I25.10 Atherosclerotic heart disease of native coronary artery without angina pectoris; I25.5 Ischemic cardiomyopathy; I25.2 Old myocardial infarction; F17.210 Nicotine dependence, cigarettes, uncomplicated; Z90.5 Acquired absence of kidney; Z79.82 Long term (current) use of aspirin; Z79.899 Other long term (current) drug therapy
CPT/HCPCS: 80048; 82553; 84484 ×2; 85025; 93005; 93306; 94660; 99285; G0378 ×3; 36415

== ENCOUNTER 2018-12-31 06:07 | Day surgery (SDC) | payer MEDICARE ==
[2018-12-27 11:39] VITALS: BMI 29.0
[2018-12-31 07:35] LABS: PTT 27.3 SEC (22.9-36.1); Prothrombin Time 12.7 SEC (12.0-14.7)
[2018-12-31] MEDS ORDERED: Lidocaine 1% (PF) 30 ML VIAL ONE (09:36)
[2018-12-31] MEDS ORDERED: Midazolam HCl 2 mg/2 ml Vial ONE (09:51)
[2018-12-31] MEDS ORDERED: Fentanyl 100 MCG/2 ML VIAL ONE (09:51)
[2018-12-31] MEDS ORDERED: Heparin 10,000 UNITS/1 ML VIAL ONE (10:07)
[2018-12-31] MEDS ORDERED: Nitroglycerin 100MG/250ML BOT 250 ML ONE (10:16)
[2018-12-31] MEDS ORDERED: Iopamidol 370 76% 100 ML VIAL ONE (14:02)
[2018-12-31] MEDS ORDERED: Iopamidol 370 76% 50 ML VIAL FS ONE (14:02)
--- NOTE | 2019-01-02 16:47 | EKG ---
Test Reason : POST STENTS X 2 Blood Pressure : / mmHG Vent. Rate : 056 BPM Atrial Rate : 056 BPM P-R Int : 182 ms QRS Dur : 088 ms QT Int : 472 ms P-R-T Axes : 070 036 019 degrees QTc Int : 455 ms Sinus bradycardia Otherwise normal ECG Confirmed by ANDREA SALOMON ([id number]) on 01/02/2019 4:47:24 PM Referred By: [email or web address] Confirmed By:ANDREA SALOMON
== END 2018-12-31 19:35 | disposition home or self-care (01) ==
LOC: CCL 06:07
PROVIDERS: ATTEND Internal Medicine Cardiovascular Disease
PROC: 4A023N7 Measurement of Cardiac Sampling and Pressure, Left Heart, Percutaneous Approach (ICD-10-PCS; principal; 2018-12-31)
PROC: B2051ZZ Plain Radiography of Left Heart using Low Osmolar Contrast (ICD-10-PCS; 2018-12-31)
DX: I25.5 Ischemic cardiomyopathy (principal); I25.10 Atherosclerotic heart disease of native coronary artery without angina pectoris; I10 Essential (primary) hypertension; F17.210 Nicotine dependence, cigarettes, uncomplicated; E78.5 Hyperlipidemia, unspecified; G47.30 Sleep apnea, unspecified; Z79.82 Long term (current) use of aspirin; Z79.899 Other long term (current) drug therapy; Z88.8 Allergy status to other drugs, medicaments and biological substances; Z95.1 Presence of aortocoronary bypass graft; Z99.89 Dependence on other enabling machines and devices
CPT/HCPCS: 36415; 85347; 85610; 85730; 92928; 93005; 93458; 99153; C1769; C1874; C9600; J1644; J2001; J2250; J3010; Q9967